=== PATIENT | male | born 1955 | race Caucasian/White ===

== ENCOUNTER 2018-03-22 19:44 | Observation (INO) ==
--- NOTE | 2018-03-22 20:17 | Emergency Department Note ---
Addendum entered and electronically signed by Michelle Jorge DO 04/04/18 20:52: Addendum entered and electronically signed by Enrico Duffy 03/23/18 00:47: Original Note: Disposition Clinical Impression: Acute retention of urine Hematuria Qualifiers: Hematuria type: idiopathic Glomerular morphologic changes: unspecified glomerular morphologic changes Qualified Code(s): N02.9 - Recurrent and persistent hematuria with unspecified morphologic changes Disposition: Home, Self-Care Condition: Good Instructions: Youssef Catheter Placement and Care (ED), Acute Hematuria (ED) Reasons to Return/Additional Instructions: Please contact Dr. Jean's office tomorrow. If you notice that the bleeding increases or you develop shortness of breath chest pain or increased weakness please return to emergency department immediately. For a few develop a fever. Referrals: Oksana Alvarez CNP [Primary Care Provider] - [facility] [Outside] Forms: ED Satisfaction Letter Time of Disposition: 22:22 General Adult HPI - General Chief complaint: ED Urogenital-Male Stated complaint: Blood in Urine Time Seen by Provider: 03/22/18 19:59 Source: patient Mode of arrival: ambulatory Limitations: no limitations Nursing Notes Reviewed: Yes Vital Signs Reviewed: Yes - History of Present Illness HPI Narrative: The patient is a 63 year old male that presents to the ED for hematuria and urinary retention. Per patient's report, he had [employer] Photoselective Vaporization of the Prostate for his BPH 3 weeks ago. Since that time he has been having weekly occurrences of grossly blood hematuria and passing clots. Patient states usually the episodes resolve on their own without any problems. Today around 13:00 patient started to notice worsening hematuria, and noticed decreased urinary output through out the day. He called Dr. Jean's office (Urology) and spoke to one of his partners who suggested he increase his fluid intake and to see if that helps to improve his symptoms. Patient says he noticed minimal improvement from increasing his fluid intake and has since developed progressively worsening lower abdominal pressure that he rates a 4/10 at present. Patient denies fever, chills, headache, dizziness, chest pain, shortness of breath, nausea, vomiting, diarrhea, constipation, hematochezia, numbness, and weakness. Patient is not on any blood thinners. Pain Scale: 3 - Related Data Home Medications Medication Instructions Recorded Confirmed Ferrous Sulfate [Iron] 325 mg PO BID 08/01/16 02/27/18 Fluticasone Propionate Nasal 1 spr NS DAILY PRN 08/01/16 02/27/18 [Flonase] Meloxicam [Mobic] 15 mg PO DAILY 08/01/16 02/27/18 Omeprazole [PriLOSEC] 40 mg PO DAILY 08/01/16 02/27/18 Valsartan/Hydrochlorothiazide 1 each PO DAILY 08/01/16 02/27/18 [Diovan Hct 320-25 mg Tablet] Ciclopirox Olamine [Ciclopirox] 1 applic TP DAILY PRN 02/27/18 02/27/18 Cyclobenzaprine [Flexeril] 10 mg PO TID PRN 02/27/18 02/27/18 Gabapentin [Neurontin] 300 mg PO BID 02/27/18 02/27/18 Mupirocin [Bactroban Oint] 1 appl TP TID PRN 02/27/18 02/27/18 Rosuvastatin Calcium 20 mg PO DAILY 02/27/18 02/27/18 Previous Rx's Medication Instructions Recorded HYDROcodone/Acet 5/325 mg [[place] 1 tab PO Q4H PRN 5 Days #15 tab 02/27/18 5-325 mg] Allergies Allergy/AdvReac Type Severity Reaction Status Date / Time latex AdvReac see comment Verified 02/27/18 13:07 All systems ED: reviewed and negative except as stated. Constitutional: Denies: fever, chills, weakness Eyes: Denies: eye pain, vision change ENT ED: Denies: throat pain, congestion Cardiovascular: Denies: chest pain, palpitations, dyspnea on exertion, syncope Respiratory: Denies: cough, dyspnea Gastrointestinal: Reports: abdominal pain. Denies: nausea, vomiting, diarrhea, constipation, hematochezia Genitourinary: Reports: dysuria, hematuria. Denies: urgency, testicular pain Musculoskeletal: Denies: back pain, neck pain Integumentary: Denies: rash, lesions Neurological: Denies: headache, weakness, numbness, paresthesias Past Medical History - Past Medical History Attestation: Yes The following information was validated with the patient. Source: patient Medical history: Reports: diabetes, hyperlipidemia, hypertension, kidney stones, other (BPH) Surgical history: Reports: appendectomy, orthopedic, other, other (photoselective vaporization of the prostate) Psychiatric history: Reports: no psych history - Social History Smoking Status: Former smoker Smokeless Tobacco Status: No Alcohol use: Reports: occasionally Drug use: Reports: none Physical Exam - General Limitations: no limitations General appearance: alert, in no apparent distress - Head Head exam: atraumatic, normocephalic - Eye Eye exam: Present: normal appearance. Absent: scleral icterus, conjunctival injection - ENT ENT exam: mucous membranes moist, normal external ear exam - Neck Neck exam: Present: normal inspection, full ROM, trachea midline - Chest Chest inspection: Present: normal inspection, symmetric chest wall rise - Respiratory Respiratory exam: Present: normal lung sounds bilaterally. Absent: respiratory distress, wheezes - Cardiovascular Cardiovascular exam: Present: regular rate, normal rhythm, normal heart sounds. Absent: systolic murmur, diastolic murmur, rubs, gallop - Abdominal Exam Abdominal exam: Present: distention (Which relieved after a Youssef catheter placed.), normal bowel sounds. Absent: Non-Tender, tenderness, guarding, rebound - Extremities Exam Extremities exam: Present: normal inspection, full ROM. Absent: pedal edema - Neurological Exam Neurological exam: Present: alert, oriented X3 - Psychiatric Psychiatric exam: Present: normal affect, normal mood - Skin Skin exam: Present: warm, dry, intact, normal color. Absent: rash, cyanosis Course Course Narrative: Male patient presenting to emergency, after a procedure by Dr. Jean the urologist. He states that he has had bleeding almost every sent this the procedure which was 3 weeks ago. The states he feels better now after the Youssef was placed. He does have nara blood in his Youssef bag. Patient states that the abdominal distention has decreased since his Youssef was placed as well. Patient is not on any blood thinners. He denies any chest pain or shortness of breath. He appears well and denies any fevers or chills. He is resting wa tching a baseball game whenever I examined him. I did speak to asked him about this patient. He is agreeable to leave the Youssef in place and have him follow-up with Dr. Jean tomorrow. - Reevaluation(s) Reevaluation #1: Patient reevaluated at this time. Patient has 500 ml of grossly blood urine in his youssef catheter. Patient states his abdominal pain has resolved since having the Youssef catheter placed. Time: 21:20 - Consultations Consultation #1: I spoke with Dr. JULIEN. He states for the patient to have the Youssef catheter stay in and be discharged to follow-up with Dr. Jean tomorrow. I feel this is reasonable. Time: 21:20 Vital Signs Temperature 98.4 F 03/22/18 19:49 Pulse Rate 57 03/22/18 19:49 Respiratory Rate 16 03/22/18 19:49 Blood Pressure 193/96 03/22/18 19:49 O2 Sat by Pulse Oximetry 99 03/22/18 19:49 Temperature 98.4 F 03/22/18 21:17 Pulse Rate 48 03/22/18 21:17 Respiratory Rate 16 03/22/18 21:17 Blood Pressure 143/74 03/22/18 21:17 O2 Sat by Pulse Oximetry 100 03/22/18 21:17 Oxygen Delivery Oxygen Delivery Room Air Medical Decision Making - Medical Records Medical records reviewed: Yes I reviewed the patient's medical records. - Lab Data Lab results reviewed: Yes I reviewed the patient's lab results. Result diagrams: 03/22/18 21:38 Lab Results 03/22/18 Range/Units 21:38 WBC 10.5 (4.3-11.1) K/mcL RBC 4.68 (4.19-5.50) M/mcL Hgb 14.1 (12.9-16.9) g/dL Hct 39.6 (37.5-50.1) % MCV 84.6 (83.0-100.0) fL MCH 30.1 (28.0-33.3) pg MCHC 35.6 H (31.6-35.5) g/dL RDW 12.5 (11.5-14.5) % Plt Count 209 (140-400) K/mcL MPV 9.7 (9.4-12.4) fL Immature Gran % 0.7 (0-4) % Seg Neutrophils % 79.3 % Lymphocytes % 9.6 % Monocytes % 8.3 % Eosinophils % 1.3 % Basophils % 0.8 % Neutrophils # 8.3 (1.6-8.9) K/mcL Lymphocytes # 1.0 (0.6-4.6) K/mcL Monocytes # 0.9 (0.0-1.3) K/mcL Eosinophils # 0.1 (0.0-0.6) K/mcL Basophils # 0.1 (0.0-0.2) K/mcL
--- NOTE | 2018-03-22 21:23 | Emergency Department Note ---
Disposition Clinical Impression: Acute retention of urine, Hematuria Disposition: Home, Self-Care Condition: Good Instructions: Castle Catheter Placement and Care (ED), Acute Hematuria (ED) Reasons to Return/Additional Instructions: Please contact Dr. Jean's office tomorrow. If you notice that the bleeding increases or you develop shortness of breath chest pain or increased weakness please return to emergency department immediately. For a few develop a fever. Referrals: [facility] [Outside] Oksana lAvarez CNP [Primary Care Provider] - Forms: ED Satisfaction Letter General Adult HPI - General Chief complaint: ED Urogenital-Male Stated complaint: Blood in Urine Time Seen by Provider: 03/22/18 19:59 Source: patient Mode of arrival: ambulatory Limitations: no limitations - History of Present Illness Pain Scale: 3 - Related Data Home Medications Medication Instructions Recorded Confirmed Ferrous Sulfate [Iron] 325 mg PO BID 08/01/16 02/27/18 Fluticasone Propionate Nasal 1 spr NS DAILY PRN 08/01/16 02/27/18 [Flonase] Meloxicam [Mobic] 15 mg PO DAILY 08/01/16 02/27/18 Omeprazole [PriLOSEC] 40 mg PO DAILY 08/01/16 02/27/18 Valsartan/Hydrochlorothiazide 1 each PO DAILY 08/01/16 02/27/18 [Diovan Hct 320-25 mg Tablet] Ciclopirox Olamine [Ciclopirox] 1 applic TP DAILY PRN 02/27/18 02/27/18 Cyclobenzaprine [Flexeril] 10 mg PO TID PRN 02/27/18 02/27/18 Gabapentin [Neurontin] 300 mg PO BID 02/27/18 02/27/18 Mupirocin [Bactroban Oint] 1 appl TP TID PRN 02/27/18 02/27/18 Rosuvastatin Calcium 20 mg PO DAILY 02/27/18 02/27/18 Previous Rx's Medication Instructions Recorded HYDROcodone/Acet 5/325 mg [[place] 1 tab PO Q4H PRN 5 Days #15 tab 02/27/18 5-325 mg] Allergies Allergy/AdvReac Type Severity Reaction Status Date / Time latex AdvReac see comment Verified 02/27/18 13:07 Constitutional: Denies: fever, chills, weakness Eyes: Denies: eye pain, vision change ENT ED: Denies: throat pain, congestion Cardiovascular: Denies: chest pain, palpitations, dyspnea on exertion, syncope Respiratory: Denies: cough, dyspnea Gastrointestinal: Reports: abdominal pain. Denies: nausea, vomiting, diarrhea, constipation, hematochezia Genitourinary: Reports: dysuria, hematuria. Denies: urgency, testicular pain Musculoskeletal: Denies: back pain, neck pain Integumentary: Denies: rash, lesions Neurological: Denies: headache, weakness, numbness, paresthesias Past Medical History - Past Medical History Medical history: Reports: diabetes, hyperlipidemia, hypertension, kidney stones, other Surgical history: Reports: appendectomy, orthopedic, other, other (photosel ective vaporization of the prostate) Psychiatric history: Reports: no psych history - Social History Smoking Status: Former smoker Smokeless Tobacco Status: No Alcohol use: Reports: occasionally Drug use: Reports: none Physical Exam - General Limitations: no limitations General appearance: alert, in no apparent distress Course Vital Signs Temperature 98.4 F 03/22/18 19:49 Pulse Rate 57 03/22/18 19:49 Respiratory Rate 16 03/22/18 19:49 Blood Pressure 193/96 03/22/18 19:49 O2 Sat by Pulse Oximetry 99 03/22/18 19:49 Temperature 98.4 F 03/22/18 21:17 Pulse Rate 48 03/22/18 21:17 Respiratory Rate 16 03/22/18 21:17 Blood Pressure 143/74 03/22/18 21:17 O2 Sat by Pulse Oximetry 100 03/22/18 21:17 Oxygen Delivery Oxygen Delivery Room Air Medical Decision Making - Lab Data Result diagrams: 03/22/18 21:38 Lab Results 03/22/18 Range/Units 21:38 WBC 10.5 (4.3-11.1) K/mcL RBC 4.68 (4.19-5.50) M/mcL Hgb 14.1 (12.9-16.9) g/dL Hct 39.6 (37.5-50.1) % MCV 84.6 (83.0-100.0) fL MCH 30.1 (28.0-33.3) pg MCHC 35.6 H (31.6-35.5) g/dL RDW 12.5 (11.5-14.5) % Plt Count 209 (140-400) K/mcL MPV 9.7 (9.4-12.4) fL Immature Gran % 0.7 (0-4) % Seg Neutrophils % 79.3 % Lymphocytes % 9.6 % Monocytes % 8.3 % Eosinophils % 1.3 % Basophils % 0.8 % Neutrophils # 8.3 (1.6-8.9) K/mcL Lymphocytes # 1.0 (0.6-4.6) K/mcL Monocytes # 0.9 (0.0-1.3) K/mcL Eosinophils # 0.1 (0.0-0.6) K/mcL Basophils # 0.1 (0.0-0.2) K/mcL Attestation Statement - Attestation Attestation: I examined this patient and my medical decision-making was reviewed with the Resident Physician. I agree with the documented findings, disposition and treatment plan as described except to the extent set forth below. Patient presents to the ED with a chief complaint of urinary retention. Passing blood started around 1 PM. Patient is 3 weeks status post prostate surgery with Dr. Jean. Denies dizziness or syncope. On exam he is in no acute distress. Abdomen soft nontender. The Castle in place draining dark red urine. Plan. Castle placed. We will discuss with urology. Basic labs. Hemoglobin stable. They were unable to run his urine because of the large amount of blood. Patient is discharged home to follow-up with Dr. Jean in the office tomorrow.
[2018-03-22 22:13] LABS: Basophils # 0.1 K/mcL (0.0-0.2); Basophils % 0.8 %; Eosinophils # 0.1 K/mcL (0.0-0.6); Eosinophils % 1.3 %; Hematocrit 39.6 % (37.5-50.1); Hemoglobin 14.1 g/dL (12.9-16.9); Immature Granulocytes % 0.7 % (0-4); Lymphocytes % 9.6 %; Mean Corpuscular HGB Conc 35.6 g/dL (31.6-35.5); Mean Corpuscular Hemoglobin 30.1 pg (28.0-33.3); Mean Corpuscular Volume 84.6 fL (83.0-100.0); Mean Platelet Volume 9.7 fL (9.4-12.4); Monocytes # 0.9 K/mcL (0.0-1.3); Monocytes % 8.3 %; Neutrophils # 8.3 K/mcL (1.6-8.9); Platelet Count 209 K/mcL (140-400); Red Blood Count 4.68 M/mcL (4.19-5.50); Red Cell Distribution Width 12.5 % (11.5-14.5); Segmented Neutrophils % 79.3 %
--- NOTE | 2018-03-23 00:54 | Emergency Department Note ---
Disposition Clinical Impression: Acute retention of urine Hematuria Qualifiers: Hematuria type: idiopathic Glomerular morphologic changes: unspecified glomerular morphologic changes Qualified Code(s): N02.9 - Recurrent and persistent hematuria with unspecified morphologic changes Disposition: Home, Self-Care Condition: Good Instructions: Castle Catheter Placement and Care (ED), Acute Hematuria (ED) Reasons to Return/Additional Instructions: Please contact Dr. Jean's office tomorrow. If you notice that the bleeding increases or you develop shortness of breath chest pain or increased weakness please return to emergency department immediately. For a few develop a fever. Prescriptions: Cephalexin [Keflex] 500 mg PO BID 5 Days capsule Phenazopyridine [Pyridium] 200 mg PO TID 1 Days #3 tablet Referrals: [facility] [Outside] Oksana Alvarez CNP [Primary Care Provider] - Forms: ED Satisfaction Letter General Adult HPI - General Chief complaint: ED Urogenital-Male Stated complaint: Blood in Urine Time Seen by Provider: 03/22/18 19:59 Source: patient Mode of arrival: ambulatory Limitations: no limitations - History of Present Illness Pain Scale: 3 - Related Data Home Medications Medication Instructions Recorded Confirmed Ferrous Sulfate [Iron] 325 mg PO BID 08/01/16 02/27/18 Fluticasone Propionate Nasal 1 spr NS DAILY PRN 08/01/16 02/27/18 [Flonase] Meloxicam [Mobic] 15 mg PO DAILY 08/01/16 02/27/18 Omeprazole [PriLOSEC] 40 mg PO DAILY 08/01/16 02/27/18 Valsartan/Hydrochlorothiazide 1 each PO DAILY 08/01/16 02/27/18 [Diovan Hct 320-25 mg Tablet] Ciclopirox Olamine [Ciclopirox] 1 applic TP DAILY PRN 02/27/18 02/27/18 Cyclobenzaprine [Flexeril] 10 mg PO TID PRN 02/27/18 02/27/18 Gabapentin [Neurontin] 300 mg PO BID 02/27/18 02/27/18 Mupirocin [Bactroban Oint] 1 appl TP TID PRN 02/27/18 02/27/18 Rosuvastatin Calcium 20 mg PO DAILY 02/27/18 02/27/18 Previous Rx's Medication Instructions Recorded HYDROcodone/Acet 5/325 mg [[place] 1 tab PO Q4H PRN 5 Days #15 tab 02/27/18 5-325 mg] Cephalexin [Keflex] 500 mg PO BID 5 Days capsule 03/23/18 Phenazopyridine [Pyridium] 200 mg PO TID 1 Days #3 tablet 03/23/18 Allergies Allergy/AdvReac Type Severity Reaction Status Date / Time latex AdvReac see comment Verified 02/27/18 13:07 Constitutional: Denies: fever, chills, weakness Eyes: Denies: eye pain, vision change ENT ED: Denies: throat pain, congestion Cardiovascular: Denies: chest pain, palpitations, dyspnea on exertion, syncope Respiratory: Denies: cough, dyspnea Gastrointestinal: Reports: abdominal pain. Denies: nausea, vomiting, diarrhea, constipation, hematochezia Genitourinary: Reports: dysuria, hematuria. Denies: urgency, testicular pain Musculoskeletal: Denies: back pain, neck pain Integumentary: Denies: rash, lesions Neurological: Denies: headache, weakness, numbness, paresthesias Past Medical History - Past Medical History Medical history: Reports: diabetes, hyperlipidemia, hypertension, kidney stones, other (BPH) Surgical history: Reports: appendectomy, orthopedic, other, other (photosele ctive vaporization of the prostate) Psychiatric history: Reports: no psych history - Social History Smoking Status: Former smoker Smokeless Tobacco Status: No Alcohol use: Reports: occasionally Drug use: Reports: none Physical Exam - General Limitations: no limitations General appearance: alert, in no apparent distress Course Vital Signs Temperature 98.4 F 03/22/18 19:49 Pulse Rate 57 03/22/18 19:49 Respiratory Rate 16 03/22/18 19:49 Blood Pressure 193/96 03/22/18 19:49 O2 Sat by Pulse Oximetry 99 03/22/18 19:49 Temperature 98.4 F 03/22/18 21:17 Pulse Rate 48 03/22/18 21:17 Respiratory Rate 16 03/22/18 21:17 Blood Pressure 143/74 03/22/18 21:17 O2 Sat by Pulse Oximetry 100 03/22/18 21:17 Oxygen Delivery Oxygen Delivery Room Air Medical Decision Making - Lab Data Result diagrams: 03/22/18 21:38 Lab Results 03/22/18 Range/Units 21:38 WBC 10.5 (4.3-11.1) K/mcL RBC 4.68 (4.19-5.50) M/mcL Hgb 14.1 (12.9-16.9) g/dL Hct 39.6 (37.5-50.1) % MCV 84.6 (83.0-100.0) fL MCH 30.1 (28.0-33.3) pg MCHC 35.6 H (31.6-35.5) g/dL RDW 12.5 (11.5-14.5) % Plt Count 209 (140-400) K/mcL MPV 9.7 (9.4-12.4) fL Immature Gran % 0.7 (0-4) % Seg Neutrophils % 79.3 % Lymphocytes % 9.6 % Monocytes % 8.3 % Eosinophils % 1.3 % Basophils % 0.8 % Neutrophils # 8.3 (1.6-8.9) K/mcL Lymphocytes # 1.0 (0.6-4.6) K/mcL Monocytes # 0.9 (0.0-1.3) K/mcL Eosinophils # 0.1 (0.0-0.6) K/mcL Basophils # 0.1 (0.0-0.2) K/mcL
[2018-03-23] MEDS ORDERED: *HR* FentaNYL (PF) 100 MCG/2 ML VIAL IVP ONE (01:01)
[2018-03-23] MEDS ORDERED: *HR* HYDROmorphone (PF) 1 MG/ML SYRINGE IM ONE (01:02)
--- NOTE | 2018-03-23 01:04 | Emergency Department Note ---
Disposition Clinical Impression: Acute retention of urine Hematuria Qualifiers: Hematuria type: idiopathic Glomerular morphologic changes: unspecified glomerular morphologic changes Qualified Code(s): N02.9 - Recurrent and persistent hematuria with unspecified morphologic changes Disposition: Home, Self-Care Condition: Good Instructions: Castle Catheter Placement and Care (ED), Acute Hematuria (ED) Reasons to Return/Additional Instructions: Please contact Dr. Jean's office tomorrow. If you notice that the bleeding increases or you develop shortness of breath chest pain or increased weakness please return to emergency department immediately. For a few develop a fever. Prescriptions: Cephalexin [Keflex] 500 mg PO BID 5 Days capsule Phenazopyridine [Pyridium] 200 mg PO TID 1 Days #3 tablet Referrals: [facility] [Outside] Oksana Alvarez CNP [Primary Care Provider] - Forms: ED Satisfaction Letter General Adult HPI - General Chief complaint: ED Urogenital-Male Stated complaint: Blood in Urine Time Seen by Provider: 03/22/18 19:59 Source: patient Mode of arrival: ambulatory Limitations: no limitations - History of Present Illness HPI Narrative: ED ATTESTATION NOTE: I examined this patient and my medical decision-making was reviewed with the Resident Physician/[employer] DEVELOPER/PA/Student. I have personally performed a face to face evaluation on this patient & I agree with the documented findings, disposition and treatment plan as described except to the extent set forth below. Patient was seen with emergency medicine resident Antonina Guzman please see copy of her note for details of this encounter Briefly: Patient signed out to me at 1 AM for continued bladder spasm. Got a dose of Pyridium help getting IM Dilaudid. We did reevaluate the patient. If we can manage his pain he will be discharged home otherwise we will consider admission. Disposition pending Pain Scale: 3 - Related Data Home Medications Medication Instructions Recorded Confirmed Ferrous Sulfate [Iron] 325 mg PO BID 08/01/16 02/27/18 Fluticasone Propionate Nasal 1 spr NS DAILY PRN 08/01/16 02/27/18 [Flonase] Meloxicam [Mobic] 15 mg PO DAILY 08/01/16 02/27/18 Omeprazole [PriLOSEC] 40 mg PO DAILY 08/01/16 02/27/18 Valsartan/Hydrochlorothiazide 1 each PO DAILY 08/01/16 02/27/18 [Diovan Hct 320-25 mg Tablet] Ciclopirox Olamine [Ciclopirox] 1 applic TP DAILY PRN 02/27/18 02/27/18 Cyclobenzaprine [Flexeril] 10 mg PO TID PRN 02/27/18 02/27/18 Gabapentin [Neurontin] 300 mg PO BID 02/27/18 02/27/18 Mupirocin [Bactroban Oint] 1 appl TP TID PRN 02/27/18 02/27/18 Rosuvastatin Calcium 20 mg PO DAILY 02/27/18 02/27/18 Previous Rx's Medication Instructions Recorded HYDROcodone/Acet 5/325 mg [[place] 1 tab PO Q4H PRN 5 Days #15 tab 02/27/18 5-325 mg] Cephalexin [Keflex] 500 mg PO BID 5 Days capsule 03/23/18 Phenazopyridine [Pyridium] 200 mg PO TID 1 Days #3 tablet 03/23/18 Allergies Allergy/AdvReac Type Severity Reaction Status Date / Time latex AdvReac see comment Verified 02/27/18 13:07 Constitutional: Denies: fever, chills, weakness Eyes: Denies: eye pain, vision change ENT ED: Denies: throat pain, congestion Cardiovascular: Denies: chest pain, palpitations, dyspnea on exertion, syncope Respiratory: Denies: cough, dyspnea Gastrointestinal: Reports: abdominal pain. Denies: nausea, vomiting, diarrhea, constipation, hematochezia Genitourinary: Reports: dysuria, hematuria. Denies: urgency, testicular pain Musculoskeletal: Denies: back pain, neck pain Integumentary: Denies: rash, lesions Neurological: Denies: headache, weakness, numbness, paresthesias Past Medical History - Past Medical History Medical history: Reports: diabetes, hyperlipidemia, hypertension, kidney stones, other (BPH) Surgical history: Reports: appendectomy, orthopedic, other, other (photoselective vaporization of the prostate) Psychiatric history: Reports: no psych history - Social History Smoking Status: Former smoker Smokeless Tobacco Status: No Alcohol use: Reports: occasionally Drug use: Reports: none Physical Exam - General Limitations: no limitations General appearance: alert, in no apparent distress Course Vital Signs Temperature 98.4 F 03/22/18 19:49 Pulse Rate 57 03/22/18 19:49 Respiratory Rate 16 03/22/18 19:49 Blood Pressure 193/96 03/22/18 19:49 O2 Sat by Pulse Oximetry 99 03/22/18 19:49 Temperature 98.4 F 03/22/18 21:17 Pulse Rate 51 03/23/18 00:59 Respiratory Rate 18 03/23/18 00:59 Blood Pressure 164/75 03/23/18 00:59 O2 Sat by Pulse Oximetry 97 03/23/18 00:59 Oxygen Delivery Oxygen Delivery Room Air Medical Decision Making - Lab Data Result diagrams: 03/22/18 21:38 Lab Results 03/22/18 Range/Units 21:38 WBC 10.5 (4.3-11.1) K/mcL RBC 4.68 (4.19-5.50) M/mcL Hgb 14.1 (12.9-16.9) g/dL Hct 39.6 (37.5-50.1) % MCV 84.6 (83.0-100.0) fL MCH 30.1 (28.0-33.3) pg MCHC 35.6 H (31.6-35.5) g/dL RDW 12.5 (11.5-14.5) % Plt Count 209 (140-400) K/mcL MPV 9.7 (9.4-12.4) fL Immature Gran % 0.7 (0-4) % Seg Neutrophils % 79.3 % Lymphocytes % 9.6 % Monocytes % 8.3 % Eosinophils % 1.3 % Basophils % 0.8 % Neutrophils # 8.3 (1.6-8.9) K/mcL Lymphocytes # 1.0 (0.6-4.6) K/mcL Monocytes # 0.9 (0.0-1.3) K/mcL Eosinophils # 0.1 (0.0-0.6) K/mcL Basophils # 0.1 (0.0-0.2) K/mcL
[2018-03-23] MEDS ORDERED: *HR* HYDROmorphone (PF) 1 MG/ML SYRINGE IVP ONE (02:09)
--- NOTE | 2018-03-23 02:20 | Emergency Department Note ---
Disposition Clinical Impression: Acute retention of urine Hematuria Qualifiers: Hematuria type: idiopathic Glomerular morphologic changes: unspecified glomerular morphologic changes Qualified Code(s): N02.9 - Recurrent and persistent hematuria with unspecified morphologic changes Disposition: Admitted As Inpatient Condition: Good Instructions: Castle Catheter Placement and Care (ED), Acute Hematuria (ED) Reasons to Return/Additional Instructions: Please contact Dr. Jean's office tomorrow. If you notice that the bleeding increases or you develop shortness of breath chest pain or increased weakness please return to emergency department immediately. For a few develop a fever. Prescriptions: Cephalexin [Keflex] 500 mg PO BID 5 Days capsule Phenazopyridine [Pyridium] 200 mg PO TID 1 Days #3 tablet Referrals: [facility] [Outside] Oksana Alvarez CNP [Primary Care Provider] - Forms: ED Satisfaction Letter General Adult HPI - General Chief complaint: ED Urogenital-Male Stated complaint: Blood in Urine Time Seen by Provider: 03/22/18 19:59 Source: patient Mode of arrival: ambulatory Limitations: no limitations - History of Present Illness Pain Scale: 3 - Related Data Home Medications Medication Instructions Recorded Confirmed Ferrous Sulfate [Iron] 325 mg PO BID 08/01/16 02/27/18 Fluticasone Propionate Nasal 1 spr NS DAILY PRN 08/01/16 02/27/18 [Flonase] Meloxicam [Mobic] 15 mg PO DAILY 08/01/16 02/27/18 Omeprazole [PriLOSEC] 40 mg PO DAILY 08/01/16 02/27/18 Valsartan/Hydrochlorothiazide 1 each PO DAILY 08/01/16 02/27/18 [Diovan Hct 320-25 mg Tablet] Ciclopirox Olamine [Ciclopirox] 1 applic TP DAILY PRN 02/27/18 02/27/18 Cyclobenzaprine [Flexeril] 10 mg PO TID PRN 02/27/18 02/27/18 Gabapentin [Neurontin] 300 mg PO BID 02/27/18 02/27/18 Mupirocin [Bactroban Oint] 1 appl TP TID PRN 02/27/18 02/27/18 Rosuvastatin Calcium 20 mg PO DAILY 02/27/18 02/27/18 Previous Rx's Medication Instructions Recorded HYDROcodone/Acet 5/325 mg [[place] 1 tab PO Q4H PRN 5 Days #15 tab 02/27/18 5-325 mg] Cephalexin [Keflex] 500 mg PO BID 5 Days capsule 03/23/18 Phenazopyridine [Pyridium] 200 mg PO TID 1 Days #3 tablet 03/23/18 Allergies Allergy/AdvReac Type Severity Reaction Status Date / Time latex AdvReac see comment Verified 02/27/18 13:07 Constitutional: Denies: fever, chills, weakness Eyes: Denies: eye pain, vision change ENT ED: Denies: throat pain, congestion Cardiovascular: Denies: chest pain, palpitations, dyspnea on exertion, syncope Respiratory: Denies: cough, dyspnea Gastrointestinal: Reports: abdominal pain. Denies: nausea, vomiting, diarrhea, constipation, hematochezia Genitourinary: Reports: dysuria, hematuria. Denies: urgency, testicular pain Musculoskeletal: Denies: back pain, neck pain Integumentary: Denies: rash, lesions Neurological: Denies: headache, weakness, numbness, paresthesias Past Medical History - Past Medical History Medical history: Reports: diabetes, hyperlipidemia, hypertension, kidney stones, other (BPH) Surgical history: Reports: appendectomy, orthopedic, other, other (zuly toselective vaporization of the prostate) Psychiatric history: Reports: no psych history - Social History Smoking Status: Former smoker Smokeless Tobacco Status: No Alcohol use: Reports: occasionally Drug use: Reports: none Physical Exam - General Limitations: no limitations General appearance: alert, in no apparent distress Course Course Narrative: Patient signed out to me by Dr. Jorge. Awaiting pain medications and reass essment. Patient received IM allotted and Pyridium. Patient still having significant bladder spasms of pain. We will plan to admit him for intractable pain. Patient remains alert and oriented 3 with stable vital signs. I spoke with the hospitalist carbon paste mixer operator Dr. Montejo who agrees to accept the patient at this time. We will add a BMP and urine culture for the hospitalist as he recommended. Patient agrees with this plan. Vital Signs Temperature 98.4 F 03/22/18 19:49 Pulse Rate 57 03/22/18 19:49 Respiratory Rate 16 03/22/18 19:49 Blood Pressure 193/96 03/22/18 19:49 O2 Sat by Pulse Oximetry 99 03/22/18 19:49 Temperature 98.4 F 03/22/18 21:17 Pulse Rate 51 03/23/18 00:59 Respiratory Rate 18 03/23/18 00:59 Blood Pressure 164/75 03/23/18 00:59 O2 Sat by Pulse Oximetry 97 03/23/18 00:59 Oxygen Delivery Oxygen Delivery Room Air Medical Decision Making - Lab Data Result diagrams: 03/22/18 21:38 Lab Results 03/22/18 Range/Units 21:38 WBC 10.5 (4.3-11.1) K/mcL RBC 4.68 (4.19-5.50) M/mcL Hgb 14.1 (12.9-16.9) g/dL Hct 39.6 (37.5-50.1) % MCV 84.6 (83.0-100.0) fL MCH 30.1 (28.0-33.3) pg MCHC 35.6 H (31.6-35.5) g/dL RDW 12.5 (11.5-14.5) % Plt Count 209 (140-400) K/mcL MPV 9.7 (9.4-12.4) fL Immature Gran % 0.7 (0-4) % Seg Neutrophils % 79.3 % Lymphocytes % 9.6 % Monocytes % 8.3 % Eosinophils % 1.3 % Basophils % 0.8 % Neutrophils # 8.3 (1.6-8.9) K/mcL Lymphocytes # 1.0 (0.6-4.6) K/mcL Monocytes # 0.9 (0.0-1.3) K/mcL Eosinophils # 0.1 (0.0-0.6) K/mcL Basophils # 0.1 (0.0-0.2) K/mcL
[2018-03-23 02:36] LABS: BUN/Creatinine Ratio 20 (6-26); Blood Urea Nitrogen 17 mg/dL (8-23); Calcium 9.1 mg/dL (8.6-10.3); Carbon Dioxide 27 mEq/L (23-29); Chloride 103 mEq/L (98-107); Glucose 113 mg/dL (70-105); Osmolality,Calculated 284 (280-300); Potassium 3.6 mEq/L (3.5-5.1); Sodium 136 mEq/L (136-145); eGFR For Non-African Americans > 60 (> 60)
[2018-03-23] MEDS ORDERED: Naloxone 0.4 MG/ML INJ IVP PRN (04:00)
[2018-03-23] MEDS ORDERED: OXYCODONE Oral CONC 10 MG/0.5 ML ORAL.SYG SL PRN (04:00)
[2018-03-23] MEDS ORDERED: Ondansetron 4 MG/2 ML VIAL IVP PRN (04:00)
--- NOTE | 2018-03-23 04:14 | Internal Med History&Physical ---
Date of Encounter: 03/23/18 Time of Encounter: 03:45 Internal Medicine - H&P: HPI Chief complaint: Gross Hematuria Admitted From: Emergency Dept Plans for Post Hospital Care: Home History of present illness: Mr. Hong is a 63 year old male Patient presented to the emergency room with concern for blood in his urine. Of note, patient recently had laser prostate surgery 3 weeks ago for BPH. He states since his surgery he had a little bit of blood initially in his urine, but it improved. Only a week or so later that he started noticed some blood in his urine. He did inform his urologist at that time who told him to drink some water. The blood had resolved at that time however on March 22 at around 1 PM patient stated that he had more blood in his urine, and increasing lower abdominal pain. Around 5:00 he called his urologist again who instructed him to drink some more water. After couple of hours he became more concerned with his abdominal discomfort and bloating that he decided to come to the ER for further evaluation. In the emergency room patient's CBC was within normal limits, BMP also within normal limits. Urology was called who instructed emergency room to place a Castle and have the patient follow-up with urology outpatient. The emergency room tried to get the patient home at that time however due to his increased pain and discomfort they decided patient would be best to be admitted to the hospital for further management and urology consult as well as monitoring of his hemoglobin. Upon my assessment, patient states that he has lower abdominal pain. He denies nausea, vomiting, diarrhea and constipation. He denies chest pain as well. He has had some urinary retention and the Castle demonstrates obvious blood. He has lower abdominal pressure and feels like he needs to go to the bathroom. Past Med Surg Social Fam HX - Past Medical History Medical history: diabetes, hyperlipidemia, hypertension, kidney stones, other Additional medical history: MRSA, DM diet controlled Psychiatric history: no psych history - Past Surgical History Surgical History: appendectomy, orthopedic, other, other Additional surgical history: tonsils - lithotripsy - colonoscopy x 2 - laminectomy - Social History Smoking Status: Former smoker Smokeless Tobacco Status: No Alcohol use: occasionally Drug use: none Internal Medicine - H&P: Meds Ferrous Sulfate [Iron] 325 mg PO BID 08/01/16 [History] Fluticasone Propionate Nasal [Flonase] 1 spr NS DAILY PRN 08/01/16 [History] Meloxicam [Mobic] 15 mg PO DAILY 08/01/16 [History] Omeprazole [PriLOSEC] 40 mg PO DAILY 08/01/16 [History] Valsartan/Hydrochlorothiazide [Diovan Hct 320-25 mg Tablet] 1 each PO DAILY 08/01/16 [History] Ciclopirox Olamine [Ciclopirox] 1 applic TP DAILY PRN 02/27/18 [History] Cyclobenzaprine [Flexeril] 10 mg PO TID PRN 02/27/18 [History] Gabapentin [Neurontin] 300 mg PO BID 02/27/18 [History] HYDROcodone/Acet 5/325 mg [[place] 5-325 mg] 1 tab PO Q4H PRN 5 Days #15 tab 02/27/18 [Rx] Mupirocin [Bactroban Oint] 1 appl TP TID PRN 02/27/18 [History] Rosuvastatin Calcium 20 mg PO DAILY 02/27/18 [History] Cephalexin [Keflex] 500 mg PO BID 5 Days capsule 03/23/18 [Rx] Phenazopyridine [Pyridium] 200 mg PO TID 1 Days #3 tablet 03/23/18 [Rx] Allergy/AdvReac Type Severity Reaction Status Date / Time latex AdvReac see comment Verified 02/27/18 13:07 All Systems PM: A 10-system review of systems was performed and is negative for pertinent findings except as documented above in the HPI. - Constitutional Vitals: Temp Pulse Resp BP Pulse Ox 98.4 F 59 18 164/117 96 03/22/18 21:17 03/23/18 02:18 03/23/18 03:01 03/23/18 03:01 03/23/18 02:18 General appearance: Present: A&O X 3, pleasant, no acute distress, answers questions appropriately Exam: As above - Head Head exam: Present: normal inspection - Eye Eye exam: Present: EOMI, normal appearance - Neck Neck exam general surgery: Present: full ROM - Respiratory Respiratory exam: Present: decreased breath sounds, CTAB. Absent: chest wall tenderness, wheezes - Cardiovascular Cardiovascular exam: Present: RRR. Absent: diastolic murmur, systolic murmur - GI/Abdominal GI/Abdominal exam: Present: distended, normal bowel sounds, soft, tenderness. Absent: guarding - Extremities Exam Extremities exam: Present: warm, radial pulses palpable and symmetrical. Absent: calf tenderness, pedal edema, tenderness - Neurological Exam Neurological exam: Present: no focal deficits, strengths equal and symetr throughout. Absent: motor sensory deficit, facial droop, speech deficit - Skin Skin exam: Present: dry, normal color, warm Internal Med - H&P Results - Labs CBC & Chem 7: 03/23/18 05:33 03/22/18 21:38 Labs: Short CBC 03/22/18 Range/Units 21:38 WBC 10.5 (4.3-11.1) K/mcL Hgb 14.1 (12.9-16.9) g/dL Hct 39.6 (37.5-50.1) % Plt Count 209 (140-400) K/mcL Neutrophils # 8.3 (1.6-8.9) K/mcL BMP 03/22/18 21:38 Sodium 136 Potassium 3.6 Chloride 103 Carbon Dioxide 27 BUN 17 Creatinine 0.84 Glucose 113 H Calcium 9.1 - Assessment and plan (1) Hematuria Current Visit: Yes Status: Acute Assessment and plan: Likely secondary to recent prostate photo-vaporization. Patient has had a Castle catheter placed. Urology was called from the emergency room, will see patient on consult. Follow-up urology recommendations Nothing by mouth Type and screen Monitor hemoglobin Qualifiers: Hematuria type: idiopathic Glomerular morphologic changes: unspecified g lomerular morphologic changes Qualified Code(s): N02.9 - Recurrent and pe rsistent hematuria with unspecified morphologic changes (2) Suprapubic abdominal pain Current Visit: Yes Status: Acute Assessment and plan: Likely secondary to recent prostate procedure as well as catheter placement. Patient also slightly distended. Could have blockage due to a clot as well. Urology consult in the a.m. Continue to monitor Oxycodone sublingual as needed for pain (3) Acute retention of urine Current Visit: Yes Status: Acute Assessment and plan: Likely secondary to hematuria and clot formation in the bladder. Patient has a Castle placed Monitor output Urology consult (4) DVT prophylaxis Current Visit: Yes Status: Acute Assessment and plan: SCDs - Time Spent With Patient Total time spent is greater than 50% in coordination of care (as documented) at patient's floor/unit and/or counseling patient: Greater than 35 minutes
[2018-03-23 05:45] LABS: Hematocrit 44.5 % (37.5-50.1); Mean Corpuscular HGB Conc 35.7 g/dL (31.6-35.5); Mean Platelet Volume 9.6 fL (9.4-12.4); Platelet Count 245 K/mcL (140-400); Red Cell Distribution Width 12.5 % (11.5-14.5)
[2018-03-23 05:53] LABS: Hemoglobin 15.9 g/dL (12.9-16.9)
[2018-03-23] MEDS ORDERED: Clotrimazole 1% CRM 15 GM TUBE TP PRN (08:16)
[2018-03-23] MEDS ORDERED: Fluticasone Propionate Nasal 50 MCG/SPRAY BOTTLE NS PRN (08:16)
--- NOTE | 2018-03-23 08:34 | Urology - Consult Note ---
Date of Encounter: 03/23/18 Time of Encounter: 08:31 - Assessment and Plan (1) Gross hematuria Current Visit: Yes Status: Acute Assessment and plan: Patient was significant gross hematuria. Patient's catheter was removed. 24-Fr ench hematuria catheter was then placed with a large amount of clots returned. Patient's catheter was then connected to continuous bladder irrigation. We will continue with this today and reassess this afternoon with manual irrigation. Urology CN:HPI Consult date: 03/23/18 Reason for consult Urology: Gross Hematuria Requesting physician: Dom Rowland History of present illness: Dom is a 63-year-old male who underwent a greenlight procedure 3 weeks ago. Patient had been having some off-and-on gross hematuria throughout his recovery course. He stated that this became worse yesterday when he passed a large clot and then was unable to void. Patient came to the emergency department yesterday where a catheter was placed which initially relieved his symptoms after draining 500 mL's of bloody urine. Patient was admitted secondary to some discomfort. Patient states that his catheter is poorly draining this morning. Past Med Surg Social Fam HX - Past Medical History Medical history: diabetes, hyperlipidemia, hypertension, kidney stones, other Additional medical history: MRSA, DM diet controlled Psychiatric history: no psych history - Past Surgical History Surgical History: appendectomy, orthopedic, other, other Additional surgical history: tonsils - lithotripsy - colonoscopy x 2 - laminectomy - Social History Smoking Status: Former smoker Smokeless Tobacco Status: No Alcohol use: occasionally Drug use: none Medications and Allergies Ferrous Sulfate [Iron] 325 mg PO BID 08/01/16 [History] Fluticasone Propionate Nasal [Flonase] 1 spr NS DAILY PRN 08/01/16 [History] Meloxicam [Mobic] 15 mg PO DAILY 08/01/16 [History] Omeprazole [PriLOSEC] 40 mg PO DAILY 08/01/16 [History] Valsartan/Hydrochlorothiazide [Diovan Hct 320-25 mg Tablet] 1 each PO DAILY 08/01/16 [History] Ciclopirox Olamine [Ciclopirox] 1 applic TP DAILY PRN 02/27/18 [History] Cyclobenzaprine [Flexeril] 10 mg PO TID PRN 02/27/18 [History] Gabapentin [Neurontin] 300 mg PO BID 02/27/18 [History] Mupirocin [Bactroban Oint] 1 appl TP TID PRN 02/27/18 [History] Rosuvastatin Calcium 20 mg PO DAILY 02/27/18 [History] Allergy/AdvReac Type Severity Reaction Status Date / Time latex AdvReac see comment Verified 02/27/18 13:07 Review of Systems - Constitutional no chills, no fever(s) - EENT Nose, mouth and throat: no dizziness - Cardiovascular no chest pain - Respiratory no cough Exam Initial Vital Signs Temp Pulse Resp BP Pulse Ox 98.4 F 57 16 193/96 99 03/22/18 19:49 03/22/18 19:49 03/22/18 19:49 03/22/18 19:49 03/22/18 19:49 - General physical appearance Present: well developed, well nourished - Eyes Present: PERRL - ENT Present: normal nares - Respiratory Present: normal respiratory effort - Cardiovascular Cardiovascular exam IM: RRR - Genitourinary other (catheter with bloody urine. ) Urology Results - Labs 03/23/18 05:33 03/22/18 21:38 Abnormal lab results WBC 19.6 K/mcL (4.3-11.1) H D 03/23/18 05:33 MCHC 35.7 g/dL (31.6-35.5) H 03/23/18 05:33 Glucose 113 mg/dL (70-105) H 03/22/18 21:38 Diabetes panel 03/22/18 Range/Units 21:38 Sodium 136 (136-145) mEq/L Potassium 3.6 (3.5-5.1) mEq/L Chloride 103 (98-107) mEq/L Carbon Dioxide 27 (23-29) mEq/L BUN 17 (8-23) mg/dL Creatinine 0.84 (0.70-1.30) mg/dL Glucose 113 H (70-105) mg/dL Calcium 9.1 (8.6-10.3) mg/dL Calcium panel 03/22/18 Range/Units 21:38 Calcium 9.1 (8.6-10.3) mg/dL Pituitary panel 03/22/18 Range/Units 21:38 Sodium 136 (136-145) mEq/L Potassium 3.6 (3.5-5.1) mEq/L Chloride 103 (98-107) mEq/L Carbon Dioxide 27 (23-29) mEq/L BUN 17 (8-23) mg/dL Creatinine 0.84 (0.70-1.30) mg/dL Glucose 113 H (70-105) mg/dL Calcium 9.1 (8.6-10.3) mg/dL Adrenal panel 03/22/18 Range/Units 21:38 Sodium 136 (136-145) mEq/L Potassium 3.6 (3.5-5.1) mEq/L Chloride 103 (98-107) mEq/L Carbon Dioxide 27 (23-29) mEq/L BUN 17 (8-23) mg/dL Creatinine 0.84 (0.70-1.30) mg/dL Glucose 113 H (70-105) mg/dL Calcium 9.1 (8.6-10.3) mg/dL All other labs normal. Consult Discharge Plan - Plan Referrals: Oksana Alvarez, JATINDER [Primary Care Provider] -
[2018-03-23] MEDS: Gabapentin 300 MG CAPSULE PO SCH ×2 (09:07→21:57)
[2018-03-23] MEDS: Levofloxacin 750 MG/150 ML 750 MG/150 ML BAG IVPB SCH (09:08)
[2018-03-23] MEDS: hydroCHLOROthiazide 25 MG TABLET PO SCH (09:19)
[2018-03-23] MEDS: Valsartan 160 MG TABLET PO SCH (09:19)
--- NOTE | 2018-03-23 09:48 | Event Note ---
Date of Encounter: 03/23/18 Time of Encounter: 09:48 Patient with PMH of HTN and HLD Admitted to obs for hematuria associated with blood clots and acute urinary retention Patient has been started on CBI by urology at time of eval and denies any complains at my time of eval Hb is stable and cultures are penidng COntinue current management
--- NOTE | 2018-03-23 12:43 | Event Note ---
Date of Encounter: 03/23/18 Time of Encounter: 12:41 pt seen and examined. he states blood and clots started within 12 hours of him pushing a snowblower up a hill to have it serviced. developed clot retention. feels ok now I irrigated ~200 cc of old clot from bladder but then irrigated easy and clear. slowed drip down considerably and urine clear.
[2018-03-23] MEDS: OXYCODONE Oral CONC 10 MG/0.5 ML ORAL.SYG SL PRN ×2 (15:44→21:58)
[2018-03-24 04:26] LABS: Basophils % 0.4 %; Eosinophils % 1.4 %; Hematocrit 36.9 % (37.5-50.1); Immature Granulocytes % 0.3 % (0-4); Lymphocytes % 8.8 %; Mean Corpuscular HGB Conc 35.2 g/dL (31.6-35.5); Mean Corpuscular Hemoglobin 29.9 pg (28.0-33.3); Mean Corpuscular Volume 84.8 fL (83.0-100.0); Mean Platelet Volume 9.9 fL (9.4-12.4); Monocytes % 9.3 %; Platelet Count 195 K/mcL (140-400); Red Blood Count 4.35 M/mcL (4.19-5.50); Red Cell Distribution Width 12.7 % (11.5-14.5); Segmented Neutrophils % 79.8 %
[2018-03-24 04:27] LABS: Basophils # 0.1 K/mcL (0.0-0.2); Eosinophils # 0.2 K/mcL (0.0-0.6); Monocytes # 1.1 K/mcL (0.0-1.3); Neutrophils # 9.2 K/mcL (1.6-8.9)
[2018-03-24 04:49] LABS: BUN/Creatinine Ratio 22 (6-26); Blood Urea Nitrogen 19 mg/dL (8-23); Calcium 9.6 mg/dL (8.6-10.3); Carbon Dioxide 27 mEq/L (23-29); Chloride 101 mEq/L (98-107); Glucose 132 mg/dL (70-105); Osmolality,Calculated 284 (280-300); Potassium 3.6 mEq/L (3.5-5.1); Sodium 135 mEq/L (136-145); eGFR For Non-African Americans > 60 (> 60)
[2018-03-24 07:09] VITALS: BP 119/69
--- NOTE | 2018-03-24 07:28 | Urology Progress Note ---
Date of Encounter: 03/24/18 Time of Encounter: 07:26 - Assessment and Plan (1) Gross hematuria Current Visit: Yes Status: Acute Assessment and plan: ok to discharge home from urology standpoint. keep scheduled f/u next mon. cat h to stay in place Progress Note Narrative: patient seen. urine clear. no problems overnight. Objective Initial Vital Signs Temp Pulse Resp BP Pulse Ox 98.4 F 57 16 193/96 99 03/22/18 19:49 03/22/18 19:49 03/22/18 19:49 03/22/18 19:49 03/22/18 19:49 - General physical appearance Present: well developed, well nourished - Abdomen Present: soft. Absent: tender - Labs 03/24/18 03:19 03/24/18 03:19 Diabetes panel 03/24/18 Range/Units 03:19 Sodium 135 L (136-145) mEq/L Potassium 3.6 (3.5-5.1) mEq/L Chloride 101 (98-107) mEq/L Carbon Dioxide 27 (23-29) mEq/L BUN 19 (8-23) mg/dL Creatinine 0.88 (0.70-1.30) mg/dL Glucose 132 H (70-105) mg/dL Calcium 9.6 (8.6-10.3) mg/dL Calcium panel 03/24/18 Range/Units 03:19 Calcium 9.6 (8.6-10.3) mg/dL Pituitary panel 03/24/18 Range/Units 03:19 Sodium 135 L (136-145) mEq/L Potassium 3.6 (3.5-5.1) mEq/L Chloride 101 (98-107) mEq/L Carbon Dioxide 27 (23-29) mEq/L BUN 19 (8-23) mg/dL Creatinine 0.88 (0.70-1.30) mg/dL Glucose 132 H (70-105) mg/dL Calcium 9.6 (8.6-10.3) mg/dL Adrenal panel 03/24/18 Range/Units 03:19 Sodium 135 L (136-145) mEq/L Potassium 3.6 (3.5-5.1) mEq/L Chloride 101 (98-107) mEq/L Carbon Dioxide 27 (23-29) mEq/L BUN 19 (8-23) mg/dL Creatinine 0.88 (0.70-1.30) mg/dL Glucose 132 H (70-105) mg/dL Calcium 9.6 (8.6-10.3) mg/dL Consult Discharge Plan - Plan Referrals: Oksana Alvarez, JATINDER [Primary Care Provider] -
[2018-03-24 10:06] LABS: Bilirubin,Urine Negative (Negative); Blood,Urine Large (Negative); Clarity,Urine Turbid (Clear); Color,Urine Dark Yellow (Yellow); Glucose,Urine (UA) Normal (Normal); Ketones,Urine Negative (Negative); Leukocyte Esterase,Urine Large (Negative); Nitrite,Urine Negative (Negative); Protein,Urine >=300 mg/dL (Neg-Trace); Specific Gravity,Urine 1.022 (1.010-1.025); Urobilinogen,Urine Normal (Normal)
[2018-03-24 10:09] LABS: Bacteria,Urine None Seen per hpf (None-Few); Hyaline Casts,Urine None Seen per lpf (None-Few); RBC,Urine TNTC per hpf (0-3); Squamous Epithelial Cell,Urine Few per lpf (None-Few); WBC,Urine TNTC per hpf (0-3)
--- NOTE | 2018-03-24 10:09 | Discharge Summary ---
- NOTES TO OUTPATIENT PROVIDER Notes to Outpatient Provider: Patient admitted for acute urinary retention , hematuria folowing a prostate procedure, R/O UTI. S/P CBI by urology with clear urine output. Cultures are pending. Patient is discharged home on po levaquin, has appt with urology in 4 days, Urology may follow culture and escalate or discontinue antibiotics as necessary. He is hemodynamically stable Orders not resulted at time of discharge: Pending orders 03/23/18 02:17 Culture,Urine [RM] Stat 03/23/18 05:59 Type and Screen [BBK] Routine 03/24/18 09:50 Urinalysis reflex Microscopic [URIN] Stat Date of Encounter: 03/24/18 Time of Encounter: 10:09 - Discharge Diagnosis (1) Acute retention of urine Priority: Primary Status: Resolved Assessment and Plan: Discharged with youssef catheter Follow up with urology for voiding trial (2) DVT prophylaxis Priority: Primary Status: Resolved (3) Hematuria Priority: Primary Status: Resolved Assessment and Plan: s/p CBI by Urology Now resolved Follow up with urology Qualifiers: Hematuria type: idiopathic Glomerular morphologic changes: unspecified glomerular morphologic changes Qualified Code(s): N02.9 - Recurrent and persistent hematuria with unspecified morphologic changes Hospital course: Mr. Hong is a 63 year old male with PMH of HTN, HLD, diet controlled DM He was admitted for acute urinary retention , hematuria following recent prostate photo-vaporization. R/O UTI. S/P CBI by urology with clear urine output. Cultures are pending Patient is discharged home on po levaquin, has appt with urology in 4 days, Urology may follow culture and escalate or discontinue antibiotics as necessary. He is hemodynamically stable Discharge discussed with: patient, nurse - Time Spent with Patient Total time spent providing and/or coordinating discharge services: Less than 30 minutes - Discharge Medications Prescriptions: levoFLOXacin [Levaquin] 750 mg PO DAILY #7 tablet Home Medications: Ferrous Sulfate [Iron] 325 mg PO BID 08/01/16 [History] Fluticasone Propionate Nasal [Flonase] 1 spr NS DAILY PRN 08/01/16 [History] Meloxicam [Mobic] 15 mg PO DAILY 08/01/16 [History] Omeprazole [PriLOSEC] 40 mg PO DAILY 08/01/16 [History] Valsartan/Hydrochlorothiazide [Diovan Hct 320-25 mg Tablet] 1 each PO DAILY 08/01/16 [History] Ciclopirox Olamine [Ciclopirox] 1 applic TP DAILY PRN 02/27/18 [History] Cyclobenzaprine [Flexeril] 10 mg PO TID PRN 02/27/18 [History] Gabapentin [Neurontin] 300 mg PO BID 02/27/18 [History] Mupirocin [Bactroban Oint] 1 appl TP TID PRN 02/27/18 [History] Rosuvastatin Calcium 20 mg PO DAILY 02/27/18 [History] levoFLOXacin [Levaquin] 750 mg PO DAILY #7 tablet 03/24/18 [Rx] Allergies/Adverse Reactions: Allergy/AdvReac Type Severity Reaction Status Date / Time latex AdvReac see comment Verified 02/27/18 13:07 Date of admission: 03/23/18 02:33 Primary care physician: Oksana Alvarez CNP Consults: 03/23/18 04:06 Consult to Urology [CONS] Routine Consulting Provider: Urology [facility] Reason for Consult: Gross hematuria, urinary retention, consult called from ER Call Completed: Yes Discharging clinician: Que Mancilla Anticipated date of discharge: 03/24/18 - Constitutional Vitals: Temp Pulse Resp BP Pulse Ox 98.8 F 46 16 119/69 97 03/24/18 07:09 03/24/18 07:09 03/24/18 07:09 03/24/18 07:09 03/24/18 07:09 General appearance: Present: A&O X 3, pleasant, no acute distress, answers questions appropriately Exam: see below - Head Head exam: Present: atraumatic, normocephalic - Eye Eye exam: Present: PERRL, conjuntiva pink, sclera anicteric Pupils: Present: PERRL - Neck Neck exam general surgery: Present: supple, trachea midline. Absent: lymphadenopathy - Respiratory Respiratory exam: Present: CTAB. Absent: accessory muscle use, rales, rhonchi, wheezes - Cardiovascular Cardiovascular exam: Present: RRR, +S1, +S2. Absent: diastolic murmur, gallop, rubs, systolic murmur - GI/Abdominal GI/Abdominal exam: Present: normal bowel sounds, soft, no peritoneal signs. Absent: distended, tenderness - Additional comments: urethral youssef with clear urine - Extremities Exam Extremities exam: Present: warm, radial pulses palpable and symmetrical. Absent: calf tenderness, cyanotic, pedal edema - Neurological Exam Neurological exam: Present: CN II-XII intact, oriented X3, no focal deficits. Absent: pronater drift, facial droop, speech deficit - Skin Skin exam: Present: dry, intact - Patient Status Disposition: Home, Self-Care Condition: Good Functional capacity at discharge: independent ambulation Overall status at discharge: patient is back to baseline - Discharge Instructions Follow Up With: Oksana Alvarez HEAVY EQUIPMENT OPERATOR APPRENTICE [Primary Care Provider] - (follow up appointment requested, the office will call with time and date) - Diet and Activity Activity: resume usual activities as tolerated Diet: diabetic diet, low salt diet
[2018-03-24] MEDS: hydroCHLOROthiazide 25 MG TABLET PO SCH (10:18)
[2018-03-24] MEDS: Valsartan 160 MG TABLET PO SCH (10:18)
[2018-03-24] MEDS: Levofloxacin 750 MG/150 ML 750 MG/150 ML BAG IVPB SCH (10:18)
[2018-03-24] MEDS: Gabapentin 300 MG CAPSULE PO SCH (10:18)
== END 2018-03-24 12:51 | disposition home or self-care (01) ==
LOC: EMEROOARM 19:44 → 3BNU 19:44 → SUATTDRO 03-23 02:33 → 3BNU 03-23 03:24
PROVIDERS: ADMIT Pediatrics; ATTEND Internal Medicine